=== PATIENT | female | born 1985 | race Caucasian/White ===

== ENCOUNTER 2022-01-24 12:14 | Inpatient (IN) ==
[2022-01-24] MEDS: LACTATED RINGER'S 1,000 ML IV PRN ×2 (14:25→16:50)
[2022-01-24] MEDS ORDERED: LIDOCAINE 1% LOCAL 20 ML VIAL INFIL PRN (14:45)
[2022-01-24] MEDS ORDERED: OXYTOCIN 30 UNITS/500 ML BAG IV PRN ×2 (14:45→17:29)
[2022-01-24 15:17] LABS: Hematocrit (blood only) 35.5 % (34.1-44.9); Hemoglobin 11.9 g/dl (12.0-16.0); Mean Corpuscular Hemoglobin 27.5 pg (25.0-34.0); Mean Corpuscular Hgb Conc 33.5 g/dL (32.0-36.0); Mean Platelet Volume 10.7 fL (9.4-12.3); Platelet Count 238 K/uL (130-400); RDW Coefficient of Variation 15.7 % (11.5-14.5); RDW Standard Deviation 46.5 fL (36.4-46.3); Red Blood Count 4.33 M/uL (3.93-5.22); White Blood Count 12.09 K/ul (4.8-10.8)
[2022-01-24] MEDS ORDERED: LIDOCAINE 2%/EPINEPHRINE 1:200,000 20 ML SDV ONE ×2 (17:40→23:41)
[2022-01-24] MEDS ORDERED: ePHEDrine sulfate 50 MG/ML AMP ONE (17:40)
[2022-01-24] MEDS ORDERED: BUPIVACAINE 0.25% 30 ML VIAL ONE (17:40)
[2022-01-24] MEDS ORDERED: fentaNYL citrate 100 MCG/2 ML VIAL ONE (17:40)
[2022-01-24] MEDS ORDERED: SODIUM CHLORIDE 0.9% INJ 10 ML VIAL ONE (17:40)
[2022-01-24] MEDS ORDERED: fentaNYL 2MCG/ML ROPIVACAINE 1.25MG/ML 100 ML BAG EPI ONE (17:41)
[2022-01-24] MEDS ORDERED: diphenhydrAMINE 50 MG/ML VIAL IV PRN (17:49)
[2022-01-24] MEDS ORDERED: NALOXONE HCL 0.4 MG/1 ML VIAL/CARP IV PRN (17:49)
[2022-01-24] MEDS ORDERED: NALOXONE HCL 1 MG in SODIUM CHLORIDE 0.9% 1000ML 1,000 ML IV PRN (17:49)
[2022-01-24] MEDS ORDERED: ONDANSETRON INJ 2 MG/ML 2 ML VIAL IV PRN (17:49)
[2022-01-24] MEDS ORDERED: NALBUPHINE HCL INJ 10 MG/ML AMP IV PRN (17:49)
[2022-01-24] MEDS ORDERED: ePHEDrine sulfate 50 MG/ML AMP IV PRN (17:49)
[2022-01-24] MEDS ORDERED: fentaNYL 2MCG/ML ROPIVACAINE 1.25MG/ML 100 ML BAG EPI PRN (17:49)
--- NOTE | 2022-01-24 17:51 | Anesthesiology Consultation ---
Date of Service January 24, 2022 Assessment & Plan (1) Encounter for pre-operative examination: Chart Review Chart Review: Patient NOT seen in Pre Admission Testing and Acceptable Risk for Labor Epidural Consults Requested none History Height/Weight Height: 5 ft 6 in Weight: 120 kg Allergies Allergy/AdvReac Type Severity Reaction Status Date / Time sulfamethoxazole Allergy Mild Verified 04/26/20 14:31 [From ] trimethoprim [From ] Allergy Mild Verified 04/26/20 14:31 Medications Home Medications Medication Instructions Recorded Confirmed Last Taken metformin 500 mg tablet,extended 500 mg PO BID #60 tabs 05/24/21 Unknown release 24 hr Active Medications Generic Name Dose Route Start Last Admin Trade Name Freq PRN Reason Stop Dose Admin Lactated Ringer's 1,000 mls @ 125 mls/hr 01/24/22 14:45 01/24/22 16:50 Lr IV 01/26/22 14:44 125 mls/hr .Q8H PRN Administration L&D Protocol Protocol Oxytocin 30 units in 500 mls @ 2 mls/hr 01/24/22 17:29 01/24/22 17:46 Pitocin IV 01/26/22 17:28 0.12 units/hr .Q24H PRN 2 mls/hr Labor Induction/Augmentation Administration Protocol 0.12 UNITS/HR Exercise / Class Metabolic Activity II 4-5 Yardwork/Stairs/Walk up hill Past Family History Family History Other Diabetes Heart disease Hypertension Liver disease Osteoporosis Denies family history of Ovarian cancer Breast cancer Colorectal cancer Past Anesthesia History No Hx of Anesthesia Complications and No Family Hx of Anesthesia Complications Social History Smoking Status: Never smoker Do You Dip or Chew Tobacco: No Hx Alcohol Use: No Hx Substance Use: No Physical Exam Vital Signs Last Vital Signs Temp 36.8 C 01/24/22 12:35 Pulse 100 H 01/24/22 17:50 Resp 18 01/24/22 12:35 BP 149/82 H 01/24/22 15:14 Pulse Ox 97 01/24/22 17:50 Testing Laboratory Results 01/24/22 15:03 Blood Type O Positive 01/24/22 14:56 Antibody Screen NEGATIVE 01/24/22 14:56
--- NOTE | 2022-01-25 00:04 | Communication Note ---
Date of Service: January 25, 2022 pt 10cm but high station and painful. gave 5ml 2% lido with epi on monitor. excellent relief. vss
--- NOTE | 2022-01-25 01:17 | Progress Note ---
Date of Service January 25, 2022 Assessment & Plan (1) : Plan: pt doing well FHR; CAT1 Ctx; 2-3 VE; 10 /100/-2 On Pitocin Pt feels no vaginal pressure or urge to push Anticipate passive descent Admission and Anticipated Discharge Date Admission Date: January 24, 2022 Results & Data ([facility]) Vital Signs (Past 12 Hours) Vital Signs Temp Pulse Resp BP Pulse Ox 01/24/22 19:17 37.1 C 18 01/25/22 01:10 98 H 100 01/25/22 01:05 100 H 100 01/25/22 01:00 108 H 118/65 100 01/25/22 00:55 102 H 99 01/25/22 00:50 104 H 100 01/25/22 00:45 102 H 115/59 L 100 01/25/22 00:40 95 H 100 01/25/22 00:35 108 H 100 01/25/22 00:30 120 H 100 01/25/22 00:25 116 H 98 01/25/22 00:20 115 H 100 01/25/22 00:18 107 H 103/52 L 01/25/22 00:15 115 H 100 01/25/22 00:10 103 H 100 01/24/22 23:51 18 01/24/22 23:51 18 01/25/22 00:05 128 H 100 01/25/22 00:00 126 H 100 01/24/22 23:59 126 H 123/53 L 01/24/22 23:57 131 H 103/53 L 01/24/22 23:55 133 H 100 01/24/22 23:56 131 H 106/51 L 01/24/22 23:53 129 H 96/49 L 01/24/22 23:50 120 H 107/61 100 01/24/22 23:45 109 H 97 01/24/22 23:46 109 H 119/65 01/24/22 23:40 116 H 99 01/24/22 23:35 115 H 97 01/24/22 23:30 111 H 98 01/24/22 23:31 107 H 126/72 01/24/22 23:25 110 H 96 01/24/22 23:20 111 H 98 01/24/22 23:16 111 H 128/70 01/24/22 23:15 110 H 96 01/24/22 23:10 122 H 97 01/24/22 23:05 127 H 98 01/24/22 23:00 113 H 97 01/24/22 23:01 112 H 139/73 01/24/22 22:55 116 H 96 01/24/22 22:50 114 H 97 01/24/22 22:45 116 H 124/74 97 01/24/22 22:40 124 H 97 01/24/22 22:35 37.5 C 120 H 18 97 01/24/22 22:30 132 H 98 01/24/22 22:25 115 H 98 01/24/22 22:20 133 H 97 01/24/22 22:15 117 H 96/54 L 97 01/24/22 22:10 103 H 98 01/24/22 22:05 116 H 98 01/24/22 22:00 108 H 98 01/24/22 22:01 111 H 119/60 01/24/22 21:55 108 H 97 01/24/22 21:50 105 H 97 01/24/22 21:45 107 H 97 01/24/22 21:46 105 H 115/58 L 01/24/22 21:40 114 H 97 01/24/22 21:35 112 H 97 01/24/22 21:30 117 H 98 01/24/22 21:31 118 H 120/63 01/24/22 21:25 113 H 96 01/24/22 21:20 106 H 96 01/24/22 21:16 108 H 129/68 01/24/22 21:15 106 H 97 01/24/22 21:10 114 H 97 01/24/22 21:05 105 H 97 01/24/22 21:00 113 H 99 01/24/22 20:57 122 H 106/58 L 01/24/22 20:55 105 H 98 01/24/22 20:52 111 H 122/69 01/24/22 20:50 107 H 98 01/24/22 20:48 107 H 123/68 01/24/22 20:45 102 H 98 01/24/22 20:42 109 H 125/65 01/24/22 20:40 107 H 97 01/24/22 20:35 98 H 97 01/24/22 20:30 112 H 98 01/24/22 20:27 102 H 120/66 01/24/22 20:25 108 H 98 01/24/22 20:20 102 H 99 01/24/22 20:17 108 H 119/65 01/24/22 20:15 102 H 99 01/24/22 20:12 107 H 125/65 01/24/22 20:10 110 H 100 01/24/22 20:05 109 H 100 01/24/22 20:02 107 H 122/64 01/24/22 20:00 97 H 100 01/24/22 19:58 100 H 116/57 L 01/24/22 19:55 113 H 100 01/24/22 19:53 107 H 126/66 01/24/22 19:50 101 H 100 01/24/22 19:48 105 H 123/63 01/24/22 19:45 110 H 100 01/24/22 19:44 103 H 126/67 01/24/22 19:40 102 H 100 01/24/22 19:38 106 H 119/61 01/24/22 19:35 92 H 100 01/24/22 19:33 100 H 122/62 01/24/22 19:30 109 H 100 01/24/22 19:29 103 H 116/58 L 01/24/22 19:25 119 H 100 01/24/22 19:24 93 H 98/66 L 01/24/22 19:20 96 H 100 01/24/22 19:18 98 H 119/61 01/24/22 19:15 121 H 100 01/24/22 19:13 120 H 90/54 L 01/24/22 19:10 115 H 100 01/24/22 19:08 104 H 119/59 L 01/24/22 19:05 124 H 100 01/24/22 19:03 109 H 118/54 L 01/24/22 19:00 115 H 100 01/24/22 18:59 106 H 111/57 L 01/24/22 18:55 108 H 100 01/24/22 18:51 110 H 111/56 L 01/24/22 18:50 103 H 98/56 L 100 01/24/22 18:45 122 H 100 01/24/22 18:46 117 H 96/53 L 01/24/22 18:44 100 H 110/56 L 01/24/22 18:41 109 H 95/52 L 01/24/22 18:40 100 01/24/22 18:40 109 H 01/24/22 18:40 101 H 91/55 L 01/24/22 18:38 115 H 78/39 L 01/24/22 18:35 114 H 01/24/22 18:35 115 H 94/51 L 100 01/24/22 18:34 125 H 90/48 L 01/24/22 18:31 106 H 97/56 L 01/24/22 18:30 129 H 100 01/24/22 18:29 118 H 93/50 L 01/24/22 18:28 116 H 93/54 L 01/24/22 18:25 122 H 108/56 L 100 01/24/22 18:24 141 H 96/55 L 01/24/22 18:21 115 H 107/61 01/24/22 18:20 99 01/24/22 18:20 114 H 01/24/22 18:20 118 H 101/55 L 01/24/22 18:18 109 H 113/55 L 01/24/22 18:15 100 H 99 01/24/22 18:16 100 H 136/69 01/24/22 18:14 102 H 126/69 01/24/22 18:12 107 H 133/73 01/24/22 18:10 98 01/24/22 18:10 104 H 01/24/22 18:10 99 H 135/82 01/24/22 18:08 99 H 138/91 01/24/22 18:05 97 H 97 01/24/22 18:06 95 H 136/85 01/24/22 18:04 99 H 121/83 01/24/22 18:02 100 H 136/63 01/24/22 18:00 95 H 99 01/24/22 17:55 101 H 98 01/24/22 17:52 102 H 135/84 01/24/22 17:50 100 H 97 01/24/22 17:45 99 H 99 01/24/22 17:40 98 H 98 01/24/22 17:35 102 H 97 01/24/22 15:14 90 149/82 H
[2022-01-25] MEDS: LACTATED RINGER'S 1,000 ML IV PRN ×2 (02:58→04:49)
[2022-01-25] MEDS ORDERED: OXYTOCIN 30 UNITS/500 ML BAG IV PRN ×2 (03:15→03:48)
[2022-01-25] MEDS ORDERED: DIPHTHERIA/TETANUS/PERTUSSIS 0.5 ML SYR/VIAL IM ONE (03:48)
[2022-01-25] MEDS ORDERED: ACETAMINOPHEN W/CODEINE #3 1 TAB PO PRN (03:48)
[2022-01-25] MEDS ORDERED: ACETAMINOPHEN 325 MG TAB PO PRN (03:48)
[2022-01-25] MEDS ORDERED: miSOPROStoL 200 MCG TAB PR ONE (03:48)
[2022-01-25] MEDS ORDERED: BENZOCAINE 20% AER SPR 82.5 GM CAN EXT PRN (03:48)
[2022-01-25] MEDS ORDERED: METHYLERGONOVINE MALEATE 0.2 MG/ML AMP IM ONE (03:48)
[2022-01-25] MEDS ORDERED: HYDROCORTISONE ACETATE 25 MG SUPP PR PRN (03:48)
[2022-01-25] MEDS: oxyCODONE/ACETAMINOPHEN 5mg/325mg TAB PO PRN ×2 (04:00→22:18)
--- NOTE | 2022-01-25 04:48 | Progress Note ---
Date of Service January 25, 2022 Assessment & Plan (1) hematoma: Plan: called to evaluate pt with rectal pain VE; left vaginal hematoma along side of sulcus tear exam is repeated 30 mins later and the hematoma seems to be expanding offered pt surgery pt agrees and consent is obtained Admission and Anticipated Discharge Date Admission Date: January 24, 2022 Results & Data ([facility]) Vital Signs (Past 12 Hours) Vital Signs Temp Pulse Resp BP Pulse Ox 01/25/22 03:05 37.7 C H 18 01/25/22 03:05 37.1 C 18 01/24/22 19:17 37.1 C 18 01/25/22 04:40 102 H 148/111 H 01/25/22 04:35 103 H 137/94 01/25/22 04:24 100 H 177/110 H 01/25/22 03:45 114 H 123/74 01/25/22 03:42 86 78 L 01/25/22 03:35 98 01/25/22 03:35 118 H 01/25/22 03:35 116 H 135/86 01/25/22 03:30 110 H 99 01/25/22 03:25 111 H 98 01/25/22 03:20 111 H 98 01/25/22 03:15 113 H 134/71 99 01/25/22 03:11 106 H 132/73 01/25/22 03:10 110 H 99 01/25/22 03:05 112 H 99 01/25/22 03:00 113 H 98 01/25/22 02:55 117 H 98 01/25/22 02:50 121 H 98 01/25/22 02:45 120 H 98 01/25/22 02:40 158 H 98 01/25/22 02:35 139 H 97 01/25/22 02:31 127 H 155/93 H 01/25/22 02:30 135 H 98 01/25/22 02:25 111 H 98 01/25/22 02:20 104 H 98 01/25/22 02:15 99 01/25/22 02:15 107 H 01/25/22 02:15 104 H 132/80 01/25/22 02:10 108 H 100 01/25/22 02:05 112 H 100 01/25/22 02:01 107 H 130/75 01/25/22 02:00 105 H 100 01/25/22 01:55 108 H 100 01/25/22 01:50 108 H 100 01/25/22 01:45 100 01/25/22 01:45 108 H 01/25/22 01:45 105 H 129/69 01/25/22 01:40 103 H 100 01/25/22 01:35 102 H 100 01/25/22 01:30 112 H 127/70 100 01/25/22 01:25 114 H 100 01/25/22 01:24 112 H 93 01/25/22 01:20 113 H 100 01/25/22 01:15 100 01/25/22 01:15 106 H 01/25/22 01:15 112 H 115/67 01/25/22 01:10 98 H 100 01/25/22 01:05 100 H 100 01/25/22 01:00 108 H 118/65 100 01/25/22 00:55 102 H 99 01/25/22 00:50 104 H 100 01/25/22 00:45 102 H 115/59 L 100 01/25/22 00:40 95 H 100 01/25/22 00:35 108 H 100 01/25/22 00:30 120 H 100 01/25/22 00:25 116 H 98 01/25/22 00:20 115 H 100 01/25/22 00:18 107 H 103/52 L 01/25/22 00:15 115 H 100 01/25/22 00:10 103 H 100 01/24/22 23:51 18 01/24/22 23:51 18 01/25/22 00:05 128 H 100 01/25/22 00:00 126 H 100 01/24/22 23:59 126 H 123/53 L 01/24/22 23:57 131 H 103/53 L 01/24/22 23:55 133 H 100 01/24/22 23:56 131 H 106/51 L 01/24/22 23:53 129 H 96/49 L 01/24/22 23:50 120 H 107/61 100 01/24/22 23:45 109 H 97 01/24/22 23:46 109 H 119/65 01/24/22 23:40 116 H 99 01/24/22 23:35 115 H 97 01/24/22 23:30 111 H 98 01/24/22 23:31 107 H 126/72 01/24/22 23:25 110 H 96 01/24/22 23:20 111 H 98 01/24/22 23:16 111 H 128/70 01/24/22 23:15 110 H 96 01/24/22 23:10 122 H 97 01/24/22 23:05 127 H 98 01/24/22 23:00 113 H 97 01/24/22 23:01 112 H 139/73 01/24/22 22:55 116 H 96 01/24/22 22:50 114 H 97 01/24/22 22:45 116 H 124/74 97 01/24/22 22:40 124 H 97 01/24/22 22:35 37.5 C 120 H 18 97 01/24/22 22:30 132 H 98 01/24/22 22:25 115 H 98 01/24/22 22:20 133 H 97 01/24/22 22:15 117 H 96/54 L 97 01/24/22 22:10 103 H 98 01/24/22 22:05 116 H 98 01/24/22 22:00 108 H 98 01/24/22 22:01 111 H 119/60 01/24/22 21:55 108 H 97 01/24/22 21:50 105 H 97 01/24/22 21:45 107 H 97 01/24/22 21:46 105 H 115/58 L 01/24/22 21:40 114 H 97 01/24/22 21:35 112 H 97 01/24/22 21:30 117 H 98 01/24/22 21:31 118 H 120/63 01/24/22 21:25 113 H 96 01/24/22 21:20 106 H 96 01/24/22 21:16 108 H 129/68 01/24/22 21:15 106 H 97 01/24/22 21:10 114 H 97 01/24/22 21:05 105 H 97 01/24/22 21:00 113 H 99 01/24/22 20:57 122 H 106/58 L 01/24/22 20:55 105 H 98 01/24/22 20:52 111 H 122/69 01/24/22 20:50 107 H 98 01/24/22 20:48 107 H 123/68 01/24/22 20:45 102 H 98 12/08/22 20:42 109 H 125/65 01/24/22 20:40 107 H 97 01/24/22 20:35 98 H 97 01/24/22 20:30 112 H 98 01/24/22 20:27 102 H 120/66 01/24/22 20:25 108 H 98 01/24/22 20:20 102 H 99 01/24/22 20:17 108 H 119/65 01/24/22 20:15 102 H 99 01/24/22 20:12 107 H 125/65 01/24/22 20:10 110 H 100 01/24/22 20:05 109 H 100 01/24/22 20:02 107 H 122/64 01/24/22 20:00 97 H 100 01/24/22 19:58 100 H 116/57 L 01/24/22 19:55 113 H 100 01/24/22 19:53 107 H 126/66 01/24/22 19:50 101 H 100 01/24/22 19:48 105 H 123/63 01/24/22 19:45 110 H 100 01/24/22 19:44 103 H 126/67 01/24/22 19:40 102 H 100 01/24/22 19:38 106 H 119/61 01/24/22 19:35 92 H 100 01/24/22 19:33 100 H 122/62 01/24/22 19:30 109 H 100 01/24/22 19:29 103 H 116/58 L 01/24/22 19:25 119 H 100 01/24/22 19:24 93 H 98/66 L 01/24/22 19:20 96 H 100 01/24/22 19:18 98 H 119/61 01/24/22 19:15 121 H 100 01/24/22 19:13 120 H 90/54 L 01/24/22 19:10 115 H 100 01/24/22 19:08 104 H 119/59 L 01/24/22 19:05 124 H 100 01/24/22 19:03 109 H 118/54 L 01/24/22 19:00 115 H 100 01/24/22 18:59 106 H 111/57 L 01/24/22 18:55 108 H 100 01/24/22 18:51 110 H 111/56 L 01/24/22 18:50 103 H 98/56 L 100 01/24/22 18:45 122 H 100 01/24/22 18:46 117 H 96/53 L 01/24/22 18:44 100 H 110/56 L 01/24/22 18:41 109 H 95/52 L 01/24/22 18:40 100 01/24/22 18:40 109 H 01/24/22 18:40 101 H 91/55 L 01/24/22 18:38 115 H 78/39 L 01/24/22 18:35 114 H 01/24/22 18:35 115 H 94/51 L 100 01/24/22 18:34 125 H 90/48 L 01/24/22 18:31 106 H 97/56 L 01/24/22 18:30 129 H 100 01/24/22 18:29 118 H 93/50 L 01/24/22 18:28 116 H 93/54 L 01/24/22 18:25 122 H 108/56 L 100 01/24/22 18:24 141 H 96/55 L 01/24/22 18:21 115 H 107/61 01/24/22 18:20 99 01/24/22 18:20 114 H 01/24/22 18:20 118 H 101/55 L 01/24/22 18:18 109 H 113/55 L 01/24/22 18:15 100 H 99 01/24/22 18:16 100 H 136/69 01/24/22 18:14 102 H 126/69 01/24/22 18:12 107 H 133/73 01/24/22 18:10 98 01/24/22 18:10 104 H 01/24/22 18:10 99 H 135/82 01/24/22 18:08 99 H 138/91 01/24/22 18:05 97 H 97 01/24/22 18:06 95 H 136/85 01/24/22 18:04 99 H 121/83 01/24/22 18:02 100 H 136/63 01/24/22 18:00 95 H 99 01/24/22 17:55 101 H 98 01/24/22 17:52 102 H 135/84 01/24/22 17:50 100 H 97 01/24/22 17:45 99 H 99 01/24/22 17:40 98 H 98 01/24/22 17:35 102 H 97
[2022-01-25] MEDS ORDERED: SUCCINYLCHOLINE CHLORIDE 20 MG/ML 10 ML VIAL IV ONE (04:58)
[2022-01-25] MEDS ORDERED: PHENYLEPHRINE 100MCG/ML 5ML SYR ONE (04:58)
[2022-01-25] MEDS ORDERED: DEXAMETHASONE SOD INJ 4 MG/ML VIAL ONE (04:58)
[2022-01-25] MEDS ORDERED: PROPOFOL IV EMULSION 10 MG/ML 20 ML VIAL IV ONE (04:58)
[2022-01-25] MEDS ORDERED: fentaNYL citrate 100 MCG/2 ML VIAL ONE ×2 (04:58→06:32)
[2022-01-25] MEDS ORDERED: ONDANSETRON INJ 2 MG/ML 2 ML VIAL ONE (04:58)
--- NOTE | 2022-01-25 05:02 | History & Physical Bridge Note ---
Date of Service January 25, 2022 History & Physical Bridge Note I have examined the patient, reviewed the History & Physical and in the interval since the performance of the History & Physical I have noted the following changes of clinical significance: no changes noted
[2022-01-25] MEDS ORDERED: CARBOPROST TROMETHAMINE 250 MCG/ML AMPUL ONE (05:07)
[2022-01-25] MEDS ORDERED: OXYTOCIN 10 UNITS/ML 10ML VIAL ONE (05:07)
[2022-01-25] MEDS ORDERED: OXYTOCIN 10 UNITS/ML 10ML VIAL IV ONE (05:20)
[2022-01-25] MEDS ORDERED: ONDANSETRON INJ 2 MG/ML 2 ML VIAL IV PRN ×2 (05:22→07:08)
[2022-01-25] MEDS ORDERED: PROMETHAZINE HCL 6.25 MG in SODIUM CHLORIDE 0.9% 50 ML IV PRN (05:22)
[2022-01-25] MEDS ORDERED: fentaNYL citrate 100 MCG/2 ML VIAL IV PRN (05:22)
[2022-01-25] MEDS ORDERED: ePHEDrine sulfate 50 MG/ML AMP IV PRN (05:22)
[2022-01-25] MEDS ORDERED: ATROPINE SULFATE 0.1 MG/ML 10ML SYR IV PRN (05:22)
--- NOTE | 2022-01-25 05:23 | Anesthesiology Consultation ---
Date of Service January 25, 2022 Assessment & Plan (1) Encounter for pre-operative examination: Chart Review Chart Review: Acceptable Risk for Surgery and Patient NOT seen in Pre Admission Testing Consults Requested none History Surgery Operation Date: 01/25/22 05:10 Proposed Procedures p Dilation and Evacuation - Giovanni Hernandez MD Height/Weight Height: 5 ft 6 in Weight: 120 kg Allergies Allergy/AdvReac Type Severity Reaction Status Date / Time sulfamethoxazole Allergy Mild Verified 04/26/20 14:31 [From ] trimethoprim [From ] Allergy Mild Verified 04/26/20 14:31 Medications Home Medications Medication Instructions Recorded Confirmed Last Taken metformin 500 mg tablet,extended 500 mg PO BID #60 tabs 05/24/21 Unknown release 24 hr Active Medications Generic Name Dose Route Start Last Admin Trade Name Freq PRN Reason Stop Dose Admin Lactated Ringer's 1,000 mls @ 125 mls/hr 01/24/22 14:45 01/25/22 04:49 Lr IV 01/26/22 14:44 125 mls/hr .Q8H PRN Administration L&D Protocol Protocol Oxytocin 30 units in 500 mls @ 333.333 mls/hr 01/24/22 14:45 01/25/22 03:15 Pitocin IV 02/23/22 14:44 59.94 units/hr .Q1H30M PRN 999 mls/hr Bleeding Control Administration Protocol 20 UNITS/HR Lidocaine HCl 20 ml 01/24/22 14:45 01/25/22 03:04 Lidocaine 1% Local 20 Ml Vial INFIL 02/23/22 14:44 20 ml ONCE PRN Administration Perineal/vaginal Repair Oxycodone/Acetaminophen 1 tab 01/25/22 03:48 01/25/22 04:00 Oxycodone/Acetaminophen 5mg/325mg Tab PO 02/08/22 03:47 1 tab Q4H PRN Administration Pain not relieved by... NPO Date Last Intake of Fluids: 01/24/22 Time Last Intake of Fluids: 16:00 Date Last Intake of Solids: 01/24/22 Time Last Intake of Solids: 09:30 Past Family History Family History Other Diabetes Heart disease Hypertension Liver disease Osteoporosis Denies family history of Ovarian cancer Breast cancer Colorectal cancer Social History Smoking Status: Never smoker Do You Dip or Chew Tobacco: No Hx Alcohol Use: No Hx Substance Use: No Physical Exam Vital Signs Last Vital Signs Temp 37.6 C H 01/25/22 03:35 Pulse 98 H 01/25/22 05:16 Resp 18 01/25/22 04:30 BP 147/65 H 01/25/22 05:16 Pulse Ox 78 L 01/25/22 03:42 Constitutional + obese ENMT Mouth: + dentition abnormality; no TMJ abnormality Thyromental Distance: < 3.5 Finger Breadths Mallampati Class: II Neck normal visual inspection Respiratory normal respiratory effort Auscultation: lungs clear to auscultation bilaterally Cardiovascular Rate/Rhythm: regular rate and regular rhythm Musculoskeletal Spine: normal cervical ROM and no pain with cervical ROM Neurologic moves all extremities Psychiatric Orientation: alert and oriented x 3 Testing Laboratory Results 01/24/22 15:03 Blood Type O Positive 01/24/22 14:56 Antibody Screen NEGATIVE 01/24/22 14:56
[2022-01-25] MEDS ORDERED: OXYTOCIN 10 UNITS/ML VIAL ONE (05:44)
[2022-01-25] MEDS ORDERED: ceFAZolin 330 MG/ML 1 GM VIAL ONE (05:55)
[2022-01-25 05:59] LABS: Hematocrit (blood only) 31.6 % (34.1-44.9); Hemoglobin 10.6 g/dl (12.0-16.0)
[2022-01-25] MEDS ORDERED: diphenhydrAMINE 50 MG/ML VIAL ONE (06:01)
--- NOTE | 2022-01-25 06:58 | Post Operative Brief Note ---
Immediate Post Op Note v1 Date of Surgery January 25, 2022 Pre & Post Diagnosis Operation Date: 01/25/22 05:10 Pre-Op Diagnosis: hematoma Post-Op Diagnosis: hematoma I identified the patient and participated in the time-out.: Yes Procedure Operation Date: 01/25/22 05:10 Actual Procedures p Dilation and Evacuation wth suction, vaginal hematoma(Not Applicable) - Giovanni Hernandez MD Surgeon Giovanni Hernandez MD Acute Care Assistant none Estimated Blood Loss 200 Findings Consistent with Post-Op Diagnosis Drains Michael Catheter (placed by surgeon at start of case)
--- NOTE | 2022-01-25 07:04 | Anesthesia Procedure Note ---
Date of Service January 25, 2022 Anesthesia Post Epidural Note Vital Signs Vital Signs: Temp Pulse Resp BP Pulse Ox 37.6 C H 98 H 18 147/65 H 78 L 01/25/22 03:35 01/25/22 05:16 01/25/22 04:30 01/25/22 05:16 01/25/22 03:42 Pain Intensity Rectal: Pain Intensity: 7 Notes Mental Status: alert / awake / arousable and participated in evaluation Nausea / Vomiting: adequately controlled Pain: adequately controlled Airway Patency, RR, SpO2: stable & adequate BP & HR: stable & adequate Hydration State: stable & adequate Neuraxial Anesthesia: was administered and sensory block is resolving Anesthetic Complications: no major complications apparent and Pt Satisfied with anesthetic care Epidural: Removed without complications and With tip intact
--- NOTE | 2022-01-25 07:05 | Anesthesiology Progress Note ---
Date of Service January 25, 2022 Anesthesia Post Procedure Vital Signs Vital Signs: Temp Pulse Resp BP Pulse Ox 01/25/22 04:30 18 01/25/22 04:15 18 01/25/22 04:00 18 01/25/22 03:45 18 01/25/22 03:35 37.6 C H 18 01/25/22 03:05 37.7 C H 18 01/25/22 03:05 37.1 C 18 01/24/22 19:17 37.1 C 18 01/25/22 05:16 98 H 147/65 H 01/25/22 05:00 99 H 151/92 H 01/25/22 04:45 106 H 163/96 H 01/25/22 04:40 102 H 148/111 H 01/25/22 04:35 103 H 137/94 01/25/22 04:24 100 H 177/110 H 01/25/22 03:45 114 H 123/74 01/25/22 03:42 86 78 L 01/25/22 03:35 98 01/25/22 03:35 118 H 01/25/22 03:35 116 H 135/86 01/25/22 03:30 110 H 99 01/25/22 03:25 111 H 98 01/25/22 03:20 111 H 98 01/25/22 03:15 113 H 134/71 99 01/25/22 03:11 106 H 132/73 01/25/22 03:10 110 H 99 01/25/22 03:05 112 H 99 01/25/22 03:00 113 H 98 01/25/22 02:55 117 H 98 01/25/22 02:50 121 H 98 01/25/22 02:45 120 H 98 01/25/22 02:40 158 H 98 01/25/22 02:35 139 H 97 01/25/22 02:31 127 H 155/93 H 01/25/22 02:30 135 H 98 01/25/22 02:25 111 H 98 01/25/22 02:20 104 H 98 01/25/22 02:15 99 01/25/22 02:15 107 H 01/25/22 02:15 104 H 132/80 01/25/22 02:10 108 H 100 01/25/22 02:05 112 H 100 01/25/22 02:01 107 H 130/75 01/25/22 02:00 105 H 100 01/25/22 01:55 108 H 100 01/25/22 01:50 108 H 100 01/25/22 01:45 100 01/25/22 01:45 108 H 01/25/22 01:45 105 H 129/69 01/25/22 01:40 103 H 100 01/25/22 01:35 102 H 100 01/25/22 01:30 112 H 127/70 100 01/25/22 01:25 114 H 100 01/25/22 01:24 112 H 93 01/25/22 01:20 113 H 100 01/25/22 01:15 100 01/25/22 01:15 106 H 01/25/22 01:15 112 H 115/67 01/25/22 01:10 98 H 100 01/25/22 01:05 100 H 100 01/25/22 01:00 108 H 118/65 100 01/25/22 00:55 102 H 99 01/25/22 00:50 104 H 100 01/25/22 00:45 102 H 115/59 L 100 01/25/22 00:40 95 H 100 01/25/22 00:35 108 H 100 01/25/22 00:30 120 H 100 01/25/22 00:25 116 H 98 01/25/22 00:20 115 H 100 01/25/22 00:18 107 H 103/52 L 01/25/22 00:15 115 H 100 01/25/22 00:10 103 H 100 01/24/22 23:51 18 01/24/22 23:51 18 01/25/22 00:05 128 H 100 01/25/22 00:00 126 H 100 01/24/22 23:59 126 H 123/53 L 01/24/22 23:57 131 H 103/53 L 01/24/22 23:55 133 H 100 01/24/22 23:56 131 H 106/51 L 01/24/22 23:53 129 H 96/49 L 01/24/22 23:50 120 H 107/61 100 01/24/22 23:45 109 H 97 01/24/22 23:46 109 H 119/65 01/24/22 23:40 116 H 99 01/24/22 23:35 115 H 97 01/24/22 23:30 111 H 98 01/24/22 23:31 107 H 126/72 01/24/22 23:25 110 H 96 01/24/22 23:20 111 H 98 01/24/22 23:16 111 H 128/70 01/24/22 23:15 110 H 96 01/24/22 23:10 122 H 97 01/24/22 23:05 127 H 98 01/24/22 23:00 113 H 97 01/24/22 23:01 112 H 139/73 01/24/22 22:55 116 H 96 01/24/22 22:50 114 H 97 01/24/22 22:45 116 H 124/74 97 01/24/22 22:40 124 H 97 01/24/22 22:35 37.5 C 120 H 18 97 01/24/22 22:30 132 H 98 01/24/22 22:25 115 H 98 01/24/22 22:20 133 H 97 01/24/22 22:15 117 H 96/54 L 97 01/24/22 22:10 103 H 98 01/24/22 22:05 116 H 98 01/24/22 22:00 108 H 98 01/24/22 22:01 111 H 119/60 01/24/22 21:55 108 H 97 01/24/22 21:50 105 H 97 01/24/22 21:45 107 H 97 01/24/22 21:46 105 H 115/58 L 01/24/22 21:40 114 H 97 01/24/22 21:35 112 H 97 01/24/22 21:30 117 H 98 01/24/22 21:31 118 H 120/63 01/24/22 21:25 113 H 96 01/24/22 21:20 106 H 96 01/24/22 21:16 108 H 129/68 01/24/22 21:15 106 H 97 01/24/22 21:10 114 H 97 01/24/22 21:05 105 H 97 01/24/22 21:00 113 H 99 01/24/22 20:57 122 H 106/58 L 01/24/22 20:55 105 H 98 01/24/22 20:52 111 H 122/69 01/24/22 20:50 107 H 98 01/24/22 20:48 107 H 123/68 01/24/22 20:45 102 H 98 01/24/22 20:42 109 H 125/65 01/24/22 20:40 107 H 97 01/24/22 20:35 98 H 97 01/24/22 20:30 112 H 98 01/24/22 20:27 102 H 120/66 01/24/22 20:25 108 H 98 01/24/22 20:20 102 H 99 01/24/22 20:17 108 H 119/65 01/24/22 20:15 102 H 99 01/24/22 20:12 107 H 125/65 01/24/22 20:10 110 H 100 01/24/22 20:05 109 H 100 01/24/22 20:02 107 H 122/64 01/24/22 20:00 97 H 100 01/24/22 19:58 100 H 116/57 L 01/24/22 19:55 113 H 100 01/24/22 19:53 107 H 126/66 01/24/22 19:50 101 H 100 01/24/22 19:48 105 H 123/63 01/24/22 19:45 110 H 100 01/24/22 19:44 103 H 126/67 01/24/22 19:40 102 H 100 01/24/22 19:38 106 H 119/61 01/24/22 19:35 92 H 100 01/24/22 19:33 100 H 122/62 01/24/22 19:30 109 H 100 01/24/22 19:29 103 H 116/58 L 01/24/22 19:25 119 H 100 01/24/22 19:24 93 H 98/66 L 01/24/22 19:20 96 H 100 01/24/22 19:18 98 H 119/61 01/24/22 19:15 121 H 100 01/24/22 19:13 120 H 90/54 L 01/24/22 19:10 115 H 100 01/24/22 19:08 104 H 119/59 L 01/24/22 19:05 124 H 100 01/24/22 19:03 109 H 118/54 L 01/24/22 19:00 115 H 100 01/24/22 18:59 106 H 111/57 L 01/24/22 18:55 108 H 100 01/24/22 18:51 110 H 111/56 L 01/24/22 18:50 103 H 98/56 L 100 01/24/22 18:45 122 H 100 01/24/22 18:46 117 H 96/53 L 01/24/22 18:44 100 H 110/56 L 01/24/22 18:41 109 H 95/52 L 01/24/22 18:40 100 01/24/22 18:40 109 H 01/24/22 18:40 101 H 91/55 L 01/24/22 18:38 115 H 78/39 L 01/24/22 18:35 114 H 01/24/22 18:35 115 H 94/51 L 100 01/24/22 18:34 125 H 90/48 L 01/24/22 18:31 106 H 97/56 L 01/24/22 18:30 129 H 100 01/24/22 18:29 118 H 93/50 L 01/24/22 18:28 116 H 93/54 L 01/24/22 18:25 122 H 108/56 L 100 01/24/22 18:24 141 H 96/55 L 01/24/22 18:21 115 H 107/61 01/24/22 18:20 99 01/24/22 18:20 114 H 01/24/22 18:20 118 H 101/55 L 01/24/22 18:18 109 H 113/55 L 01/24/22 18:15 100 H 99 01/24/22 18:16 100 H 136/69 01/24/22 18:14 102 H 126/69 01/24/22 18:12 107 H 133/73 01/24/22 18:10 98 01/24/22 18:10 104 H 01/24/22 18:10 99 H 135/82 01/24/22 18:08 99 H 138/91 01/24/22 18:05 97 H 97 01/24/22 18:06 95 H 136/85 01/24/22 18:04 99 H 121/83 01/24/22 18:02 100 H 136/63 01/24/22 18:00 95 H 99 01/24/22 17:55 101 H 98 01/24/22 17:52 102 H 135/84 01/24/22 17:50 100 H 97 01/24/22 17:45 99 H 99 01/24/22 17:40 98 H 98 01/24/22 17:35 102 H 97 01/24/22 15:14 90 149/82 H 01/24/22 12:39 100 H 124/79 01/24/22 12:35 36.8 C 18 Pain Intensity Rectal: Pain Intensity: 7 Notes Mental Status: alert / awake / arousable and participated in evaluation Patient Amnestic to Procedure: No Nausea / Vomiting: adequately controlled Pain: adequately controlled Airway Patency, RR, SpO2: stable & adequate BP & HR: stable & adequate Hydration State: stable & adequate Neuraxial Anesthesia: sensory block is resolving Anesthetic Complications: no major complications apparent and Pt Satisfied with anesthetic care
--- NOTE | 2022-01-25 07:07 | Delivery Summary ---
DELIVERY NOTE: The patient delivered a live infant in left occiput anterior presentation. There was no nuchal cord. was delivered and placed on mother's abdomen. Delayed cord clamp was perfor med. Cord blood, cord gases were obtained. Placenta was spontaneously delivered. Inspection of the perineum shows a second-degree midline laceration with sulcus tear. This was repaired in layers. R ectal exam was performed post-repair and there was good sphincter tone. No sutures palpated in the r ectum. Estimated blood loss was about 450 mL. Placenta was inspected and appeared grossly normal. All instr uments were removed from the vagina and accounted for x2 including sponges, needles, and retractors. The patient is stable in recovery. Job ID: [id number]
[2022-01-25] MEDS ORDERED: IBUPROFEN 600 MG TAB PO PRN (07:08)
[2022-01-25] MEDS ORDERED: PROMETHAZINE HCL 25 MG in SODIUM CHLORIDE 0.9% 50 ML IV PRN (07:08)
[2022-01-25] MEDS ORDERED: oxyCODONE/ACETAMINOPHEN 5mg/325mg TAB PO PRN (07:08)
[2022-01-25] MEDS ORDERED: LACTATED RINGER'S 1,000 ML IV SCH (07:15)
--- NOTE | 2022-01-25 07:38 | Operative Report (OR) ---
DATE OF SURGERY: 01/25/2022. INDICATION FOR SURGERY: This is a 36-year-old status post spontaneous vaginal delivery. The patient had a sulcus tear, sulcus tear was repaired. She later on developed vaginal hematoma and had to be taken to the operating room for evacuation of hematoma. PREOPERATIVE DIAGNOSES: 1. Spontaneous vaginal delivery. 2. Sulcus tear. 3. Vaginal hematoma post-repair of sulcus tear. POSTOPERATIVE DIAGNOSES: 1. Spontaneous vaginal delivery. 2. Sulcus tear. 3. Vaginal hematoma post-repair of sulcus tear. OPERATIONS: 1. Examination under anesthesia. 2. Dilation and evacuation of uterus with suction. 3. Vaginal hematoma evacuation and repair. SURGEON: Giovanni Hernandez MD. STONE CIRCULAR SAWYER: None. ANESTHESIA: General. DRAINS: Michael catheter. ESTIMATED BLOOD LOSS: 200 mL INTRAVENOUS FLUIDS: 1500 mL URINE OUTPUT: 250 mL of clear urine at the end of the procedure. SPECIMEN: Products of conception. INTRAOPERATIVE COMPLICATIONS: None. PATIENT CONDITION: Stable. DISPOSITION: Postanesthesia care unit. ATTESTATION: I performed the entire procedure. DESCRIPTION OF PROCEDURE: The patient was taken to the operating room where she was prepped and drap ed in normal sterile fashion in dorsal lithotomy position. Timeout was called. Michael catheter was p laced in the bladder. A weighted speculum was placed in the vagina. Single tooth tenaculum was used to grab the cervix. A Banjo curette was introduced in the uterine cavity and retained products were removed. A size 12 curved suction was introduced into the uterine cavity and suction evacuation per formed with that. There was good hemostasis. Attention was paid to the hematoma portion of the procedure where the hematoma was lanced and blood c lots evacuated. There was good hemostasis. The area of the hematoma is resolved. Rectal exam post- repair shows good sphincter tone. No sutures palpated in the rectum. All instruments were removed from the vagina and the uterus and accounted for x2 including sponges, n eedles, and retractors. Job ID: [id number]
[2022-01-25] MEDS ORDERED: DOCUSATE SODIUM 100 MG CAP PO SCH (08:00)
[2022-01-25] MEDS: PRENATAL VITAMIN 1 TAB PO SCH (09:14)
[2022-01-25] MEDS: FERROUS SULFATE 325 MG TAB PO SCH (09:15)
[2022-01-25] MEDS: IBUPROFEN 600 MG TAB PO PRN ×3 (09:15→22:18)
[2022-01-25] MEDS: metFORMIN HCL ER 500 MG TABCR PO SCH ×2 (19:21→19:23)
[2022-01-26 06:45] LABS: Hematocrit (blood only) 24.7 % (34.1-44.9); Hemoglobin 8.3 g/dl (12.0-16.0); Mean Corpuscular Hemoglobin 27.5 pg (25.0-34.0); Mean Corpuscular Hgb Conc 33.6 g/dL (32.0-36.0); Mean Corpuscular Volume 81.8 fL (80.0-100.0); Mean Platelet Volume 10.4 fL (9.4-12.3); Platelet Count 194 K/uL (130-400); RDW Coefficient of Variation 15.6 % (11.5-14.5); RDW Standard Deviation 46.2 fL (36.4-46.3); Red Blood Count 3.02 M/uL (3.93-5.22); White Blood Count 15.87 K/ul (4.8-10.8)
[2022-01-26] MEDS: PRENATAL VITAMIN 1 TAB PO SCH (08:09)
[2022-01-26] MEDS: FERROUS SULFATE 325 MG TAB PO SCH (08:09)
[2022-01-26] MEDS: IBUPROFEN 600 MG TAB PO PRN ×3 (08:09→19:43)
[2022-01-26] MEDS: oxyCODONE/ACETAMINOPHEN 5mg/325mg TAB PO PRN ×2 (08:10→15:31)
--- NOTE | 2022-01-26 10:04 | Obstetrical Progress Note ---
Date of Service January 26, 2022 Subjective Ambulation: limited ambulation Voiding: no voiding problems Diet Tolerance:: regular diet Lochia:: Small Feeding Type:: breast feeding Current Pain Level(1-10): 0 doing well difficult to get out of bed and limited walking Physical Exam Constitutional WD/WN, vitals as above Gastrointestinal (Abdomen) Inspection/Auscultation: abdomen normal to inspection abdomen soft and non-tender. fundus fim and below U Musculoskeletal Extremities: extremities normal to inspection Skin no rashes, warm and dry Neurologic patellar DTR's 2+ bilat, sensation intact Psychiatric A+Ox3, euthymic affect Results & Data ([facility]) Vital Signs (Past 12 Hours) Vital Signs Temp Pulse Resp BP BP Pulse Ox O2 Del Method 01/26/22 08:15 Room Air 01/26/22 08:15 36.5 C 103 H 18 101/70 97 Room Air 01/26/22 00:25 36.6 C 90 18 106/67 95 Room Air Laboratory Results 01/24/22 01/24/22 01/24/22 14:19 14:56 15:03 WBC 12.09 H RBC 4.33 Hgb 11.9 L Hct 35.5 MCV 82.0 MCH 27.5 MCHC 33.5 RDW Std Deviation 46.5 H RDW Coeff of Alex 15.7 H Plt Count 238 MPV 10.7 SARS-CoV-2, RNA, NAAT NEGATIVE Blood Type O Positive Antibody Screen NEGATIVE 01/25/22 01/25/22 01/26/22 05:23 05:23 06:15 WBC 15.87 H RBC 3.02 L Hgb 10.6 L 8.3 L Hct 31.6 L 24.7 L MCV 81.8 MCH 27.5 MCHC 33.6 RDW Std Deviation 46.2 RDW Coeff of Alex 15.6 H Plt Count 194 MPV 10.4 SARS-CoV-2, RNA, NAAT Blood Type O Positive Antibody Screen NEGATIVE
[2022-01-26] MEDS: metFORMIN HCL ER 500 MG TABCR PO SCH (10:28)
[2022-01-26] MEDS: DOCUSATE SODIUM 100 MG CAP PO SCH ×2 (12:02→21:23)
[2022-01-26] MEDS ORDERED: bisacodyL 5 MG TABEC PO SCH (20:00)
[2022-01-27] MEDS: IBUPROFEN 600 MG TAB PO PRN ×2 (00:04→06:26)
[2022-01-27] MEDS ORDERED: bisacodyL 10 MG SUPP PR PRN (03:48)
[2022-01-27 06:37] LABS: Hematocrit (blood only) 24.1 % (34.1-44.9)
[2022-01-27] MEDS: PRENATAL VITAMIN 1 TAB PO SCH (08:10)
[2022-01-27] MEDS: FERROUS SULFATE 325 MG TAB PO SCH (08:10)
[2022-01-27] MEDS: DOCUSATE SODIUM 100 MG CAP PO SCH (08:10)
[2022-01-27] MEDS ORDERED: bisacodyL 5 MG TABEC PO ONE (08:12)
[2022-01-27] MEDS: metFORMIN HCL ER 500 MG TABCR PO SCH (08:15)
--- NOTE | 2022-02-03 09:33 | Discharge Summary (DS) ---
DATE OF ADMISSION: 01/24/2022. DATE OF DISCHARGE: 01/27/2022. HISTORY OF PRESENT ILLNESS: This is a 36-year-old G1, P0, who had spontaneous vaginal delivery on . Details of delivery is in the delivery note. Several hours after delivery, the patient ex perienced rectal pressure. She was evaluated and found to have vaginal hematoma. The patient was erick en to the operating room where she underwent an incision and drainage of the vaginal hematoma. Once again details of that surgery is also in the operative note. Post-surgery, the patient did well. Lisa chester was discharged home in stable condition on 01/27/2022. PAST MEDICAL HISTORY: No history of diabetes, hypertension, or asthma. PAST SURGICAL HISTORY: None. SOCIAL HISTORY: The patient denies tobacco, drug or alcohol use. The patient is and lives w ith spouse. ALLERGIES: THE PATIENT IS ALLERGIC TO SEPTRA. REVIEW OF SYSTEMS: Negative except as dictated on the HPI. PHYSICAL EXAM: VITALS: On 01/27/2022, blood pressure is 106/71, pulse is 87, respirations 18, temperature 36.8. HEART: S1 and S2, regular rhythm and rate. LUNGS: Clear to auscultation bilaterally. ABDOMEN: Nontender, nondistended. PELVIC: Very little lochia. EXTREMITIES: No cyanosis, clubbing or edema. LABORATORY DATA: On 01/27/2022, hemoglobin was 8.0, hematocrit was 24.1. CONDITION ON DISCHARGE: Stable. OPERATIONS: Spontaneous vaginal delivery, evacuation of vaginal hematoma post-delivery. PLAN ON DISCHARGE: The patient is discharged home with instructions regarding activity, diet, and [facility]. DISCHARGE DIAGNOSIS: Post- with vaginal hematoma evacuation. Job ID: [id number]
== END 2022-01-27 13:45 | disposition home or self-care (01) | DRG 768 ==
LOC: OPB 12:14 → 4S1 12:16 → 4E2 01-25 08:58